=== PATIENT | male | born 1960 | race American Indian/Alaskan Native ===

== ENCOUNTER 2019-02-19 20:55 | Emergency (ER) | payer SELFPAY ==
--- NOTE | 2019-02-19 21:07 | Event Note ---
ED Screening Note Date of service: 02/19/19 Time: 21:04 ED Screening Note: This is a 58 y.o. M. that presents to the ER with abdominal pain and vomiting x 1 week. PMH of GERD, HLD, & HTN Current smoker This initial assessment/diagnostic orders/clinical plan/treatment(s) is/are subject to change based on patients health status, clinical progression and re- assessment by fellow clinical providers in the ED. Further treatment and workup at subsequent clinical providers discretion. Patient/guardian urged not to elope from the ED as their condition may be serious if not clinically assessed and managed. Initial orders include: Labs and CT of abdomen
[2019-02-19 21:31] LABS: Basophils # (Auto) 0.2 K/mm3 (0.0-0.1); Basophils % (Auto) 1.3 % (0.0-1.8); Eosinophils % (Auto) 0.1 % (0.0-4.3); Hematocrit 45.1 % (35.5-45.6); Hemoglobin 15.4 gm/dl (11.8-15.2); Lymphocytes % (Auto) 16.9 % (13.4-35.0); Mean Corpuscular HGB Conc 34 % (32-34); Mean Corpuscular Volume 84 fl (84-94); Monocytes # (Auto) 0.8 K/mm3 (0.0-0.8); Platelet Count 267 K/mm3 (140-440); Red Blood Count 5.34 M/mm3 (3.65-5.03)
[2019-02-19] MEDS ORDERED: ZOFRAN IV ONE (21:39)
[2019-02-19] MEDS ORDERED: NACL 0.9% 1000 ML 1,000 ML IV ONE (21:39)
[2019-02-19] MEDS ORDERED: PEPCID IV ONE (21:39)
[2019-02-19] MEDS ORDERED: MORPHINE IV ONE (21:39)
[2019-02-19 21:55] LABS: Albumin 4.5 g/dL (3.9-5); Calcium 9.6 mg/dL (8.4-10.2)
[2019-02-19 22:55] LABS: Bilirubin,Urine NEG (Negative); Blood,Urine NEG (Negative); Color,Urine Yellow (Yellow); Hyaline Casts,Urine 2 /LPF; Mucus,Urine FEW /HPF; Protein,Urine <15 mg/dL mg/dL (Negative); Urobilinogen,Urine < 2.0 mg/dL (<2.0)
--- NOTE | 2019-02-19 23:36 | Cat Scan Report ---
CT of the abdomen and pelvis with contrast INDICATION: Right-sided abdominal pain COMPARISON: None FINDINGS: Lung bases are clear. The liver, spleen, pancreas all appear normal. There are several angelica l cysts and scarring of the right kidney without obstruction. 2 mm stone in the left lower pole which is nonobstructing. There is nodularity of the right adrenal g land probably benign. The left adrenal gland contains 2 nodules one measuring 2.2 cm and the second n odule measuring 1.3 cm. These are probably nonfunctioning adenomas. No definite gallbladder or biliar y tree abnormality. No fluid or adenopathy in the upper abdomen. CT of the pelvis shows a normal appendix and terminal ileum. There is no hernia or bowel obstruction. Prostate may be minimally enlarged. No pelvic fluid or adenopathy. No diverticulitis seen. No distal ureteral stones. No stone fragments seen in the latter. No significant skeletal lesion. IMPRESSION: Incidental findings as described but no ureteral stone or appendicitis seen. Automated exposure control was utilized to diminish radiation dose. Signer Name: Fernando Gould MD Signed: 02/19/2019 11:32 PM Workstation Name: [id number]
--- NOTE | 2019-02-20 00:48 | Emergency Department Report ---
ED Abdominal Pain HPI - General Chief Complaint: Abdominal Pain Stated Complaint: abd pain Time Seen by Provider: 02/19/19 21:04 Source: patient Mode of arrival: Ambulatory Limitations: No Limitations - History of Present Illness Initial Comments: Patient is a 58-year-old -[place] male with a history of hypertension who presents to the ED with a complaint of acute onset of persistent diffuse abdominal pain worse in the bilateral flanks with nausea and vomiting intermittently for the last 1 week. Patient denies fever, chills, diarrhea, constipation, dysuria, hematuria, urinary frequency and urgency, testicular pain, dizziness, chest pain, shortness of breath, hematochezia, hematemesis, headache or palpitations. MD Complaint: abdominal pain, other (nausea and vomiting) -: Sudden, week(s) (1) Location: diffuse, bilateral flank Radiation: none Migration to: no migration Severity: severe Severity scale (0 -10): 6 Quality: cramping, aching, sharp Consistency: constant Improves With: nothing Worsens With: nothing Associated Symptoms: denies other symptoms, nausea, vomiting. denies: diarrhea, fever, constipation, dysuria, hematochezia, melena, hematuria, syncope - Related Data Previous Rx's Medication Instructions Recorded Last Taken Type Acetaminophen/Codeine [Tylenol 1 tab PO Q6H PRN #12 tab 02/20/19 Unknown Rx /Codeine # 3 tab] Ciprofloxacin HCl [Ciprofloxacin 500 mg PO Q12HR #20 tab 02/20/19 Unknown Rx TAB] Ketorolac [Toradol] 10 mg PO Q6H PRN #20 tablet 02/20/19 Unknown Rx Ondansetron [Zofran Odt] 4 mg PO Q6HR PRN #15 tab.rapdis 02/20/19 Unknown Rx Tamsulosin [Flomax] 0.4 mg PO QDAY #7 cap 02/20/19 Unknown Rx Allergies Allergy/AdvReac Type Severity Reaction Status Date / Time No Known Allergies Allergy Verified 02/19/19 21:07 ED Review of Systems ROS: Stated complaint: abd pain Other details as noted in HPI Comment: All other systems reviewed and negative Constitutional: denies: chills, fever Eyes: denies: eye pain, eye discharge, vision change ENT: denies: ear pain, throat pain Respiratory: denies: cough, shortness of breath, wheezing Cardiovascular: denies: chest pain, palpitations Endocrine: no symptoms reported Gastrointestinal: abdominal pain, nausea, vomiting. denies: diarrhea Genitourinary: denies: urgency, dysuria Musculoskeletal: denies: back pain, joint swelling, arthralgia Skin: denies: rash, lesions Neurological: denies: headache, weakness, paresthesias Psychiatric: denies: anxiety, depression Hematological/Lymphatic: denies: easy bleeding, easy bruising ED Past Medical Hx - Past Medical History Previous Medical History?: Yes Hx Hypertension: Yes Hx GERD: Yes Additional medical history: high cholestrol - Surgical History Past Surgical History?: No - Social History Smoking Status: Current Every Day Smoker Substance Use Type: None - Medications Home Medications: Home Medications Medication Instructions Recorded Confirmed Last Taken Type Acetaminophen/Codeine [Tylenol 1 tab PO Q6H PRN #12 tab 02/20/19 Unknown Rx /Codeine # 3 tab] Ciprofloxacin HCl [Ciprofloxacin 500 mg PO Q12HR #20 tab 02/20/19 Unknown Rx TAB] Ketorolac [Toradol] 10 mg PO Q6H PRN #20 tablet 02/20/19 Unknown Rx Ondansetron [Zofran Odt] 4 mg PO Q6HR PRN #15 tab.rapdis 02/20/19 Unknown Rx Tamsulosin [Flomax] 0.4 mg PO QDAY #7 cap 02/20/19 Unknown Rx ED Physical Exam - General Limitations: No Limitations General appearance: alert, in no apparent distress - Head Head exam: Present: atraumatic, normocephalic, normal inspection - Eye Eye exam: Present: normal appearance, PERRL, EOMI - ENT ENT exam: Present: normal exam, normal orophraynx, mucous membranes moist, TM's normal bilaterally, normal external ear exam - Neck Neck exam: Present: normal inspection, full ROM - Respiratory Respiratory exam: Present: normal lung sounds bilaterally. Absent: respiratory distress, wheezes, rales, rhonchi, chest wall tenderness, accessory muscle use, prolonged expiratory - Cardiovascular Cardiovascular Exam: Present: regular rate, normal rhythm, normal heart sounds. Absent: systolic murmur, diastolic murmur, rubs, gallop - GI/Abdominal GI/Abdominal exam: Present: soft, tenderness (Palpable Bilateral flanks, suprapubic and periumbilical tenderness), normal bowel sounds. Absent: hyperactive bowel sounds, hypoactive bowel sounds, mass, bruit - Rectal Rectal exam: Present: deferred - Extremities Exam Extremities exam: Present: normal inspection, full ROM - Back Exam Back exam: Present: normal inspection, full ROM. Absent: tenderness, CVA tenderness (L), muscle spasm - Neurological Exam Neurological exam: Present: alert, oriented X3, CN II-XII intact, normal gait, reflexes normal - Psychiatric Psychiatric exam: Present: normal affect, normal mood - Skin Skin exam: Present: warm, dry, intact, normal color. Absent: rash ED Course Vital Signs 02/19/19 21:06 Temperature 98.3 F Pulse Rate 62 Respiratory 12 Rate Blood Pressure 180/100 O2 Sat by Pulse 97 Oximetry - Reevaluation(s) Reevaluation #1: 02/20/19 00:57 This is a 58-year-old male who presented to the ED with diffuse abdominal and bilateral flank pain with nausea and vomiting intermittently for one week. In the ED, patient is alert and oriented 3 and is not in distress. Labs are drawn and abdomen and pelvis CT scan with contrast was ordered. Patient was treated for pain and nausea and vomiting. On reevaluation, patient is resting comfortably sleeping and snoring in the room and in no acute distress. Lab test results were reviewed and are remarkable for acute leukocytosis of 12,100, elevated BUN 21, hyperglycemia 1 40 mg/dL and a mild urinary tract infection. Abdomen pelvis CT scan with contrast shows a 2 mm stone in the left lower pole which is nonobstructing. The appendix and a terminal ileum are unre markable.There is no hernia or bowel obstruction. Prostate may be minimally enlarged. No pelvic fluid or adenopathy. No diverticulitis seen. No distal ureteral stones. No stone fragments seen in the latter. No significant skeletal lesion. Patient was discharged home on medications and advised to follow-up with his primary care physician in 3-5 days for reevaluation. Patient was also advised to consider following up with a urologist for follow-up on his kidney stones. Patient was therefore referred to the urologist Dr. Altamirano for follow- up. 02/20/19 01:01 02/20/19 01:02 ED Medical Decision Making - Lab Data Result diagrams: 02/19/19 21:09 02/19/19 21:09 - Radiology Data Radiology results: report reviewed, image reviewed Findings [facility] [address] [place] [address] Cat Scan Report Signed Patient: LISA CHICAS MR#: [id number] : 1960 Acct:[id number] Age/Sex: 58 / M ADM Date: 02/19/19 Loc: ED Attending Dr: Ordering Physician: JINNY JOHNSON Date of Service: 02/19/19 Procedure(s): CT abdomen pelvis w con Accession Number(s): [id number] cc: JINNY JOHNSON CT of the abdomen and pelvis with contrast INDICATION: Right-sided abdominal pain COMPARISON: None FINDINGS: Lung bases are clear. The liver, spleen, pancreas all appear normal. There are several renal cysts and scarring of the right kidney without obstruction. 2 mm stone in the left lower pole which is nonobstructing. There is nodularity of the right adrenal gland probably benign. The left adrenal gland contains 2 nodules one measuring 2.2 cm and the second nodule measuring 1.3 cm. These are probably nonfunctioning adenomas. No definite gallbladder or biliary tree abnormality. No fluid or adenopathy in the upper abdomen. CT of the pelvis shows a normal appendix and terminal ileum. There is no hernia or bowel obstruction. Prostate may be minimally enlarged. No pelvic fluid or adenopathy. No diverticulitis seen. No distal ureteral stones. No stone fragments seen in the latter. No significant skeletal lesion. IMPRESSION: Incidental findings as described but no ureteral stone or appendicitis seen. Automated exposure control was utilized to diminish radiation dose. Signer Name: Fernando Gould MD Signed: 02/19/2019 11:32 PM Workstation Name: [id number] Transcribed By: CHARITY Dictated By: Fernando Gould MD Electronically Authenticated By: Fernando Gould MD Signed Date/Time: 02/19/19 7722 - Medical Decision Making This is a 58-year-old male who presented to the ED with diffuse abdominal and bilateral flank pain with nausea and vomiting intermittently for one week. In the ED, patient is alert and oriented 3 and is not in distress. Labs are drawn and abdomen and pelvis CT scan with contrast was ordered. Patient was treated for pain and nausea and vomiting. On reevaluation, patient is resting comfortably sleeping and snoring in the room and in no acute distress. Lab test results were reviewed and are remarkable for acute leukocytosis of 12,100, elevated BUN 21, hyperglycemia 1 40 mg/dL and a mild urinary tract infection. Abdomen pelvis CT scan with contrast shows a 2 mm stone in the left lower pole which is nonobstructing. The appendix and a terminal ileum are unremarkable.There is no hernia or bowel obstruction. Prostate may be minimally enlarged. No pelvic fluid or adenopathy. No diverticulitis seen. No distal ureteral stones. No stone fragments seen in the latter. No significant skeletal lesion. Patient was discharged home on medications and advised to follow-up with his primary care physician in 3-5 days for reevaluation. Patient was also advised to consider following up with a urologist for follow-up on his kidney stones. Patient was therefore referred to the urologist Dr. Altamirano for follow- up. - Differential Diagnosis Abdominal pain, kidney stones, nausea and vomiting, Acute UTI Critical care attestation.: If time is entered above; I have spent that time in minutes in the direct care of this critically ill patient, excluding procedure time. ED Disposition Clinical Impression: Kidney stone on left side, Nausea and vomiting in adult, Acute urinary tract infection Abdominal pain Qualifiers: Abdominal location: unspecified location Qualified Code(s): R10.9 - Unspecified abdominal pain Disposition: TO HOME OR SELFCARE Is pt being admited?: No Does the pt Need Aspirin: No Condition: Stable Instructions: Kidney Stones (ED), Acute Nausea and Vomiting (ED), Abdominal Pain (ED) Additional Instructions: Take pain medications with food, drink plenty of fluids and follow-up with your primary care physician in 5-7 days for reevaluation. Consider following up with a urologist for the kidney stones, specifically Dr. Altamirano, in 3-5 days for reevaluation. Prescriptions: Ciprofloxacin HCl [Ciprofloxacin TAB] 500 mg PO Q12HR #20 tab Tamsulosin [Flomax] 0.4 mg PO QDAY #7 cap Ketorolac [Toradol] 10 mg PO Q6H PRN #20 tablet PRN Reason: Pain Acetaminophen/Codeine [Tylenol /Codeine # 3 tab] 1 tab PO Q6H PRN #12 tab PRN Reason: Pain , Severe (7-10) Ondansetron [Zofran Odt] 4 mg PO Q6HR PRN #15 tab.rapdis PRN Reason: Nausea Referrals: APOLINAR ALTAMIRANO MD [Staff Physician] - 3-5 Days [place] KYLAH SANCHEZ MD [Primary Care Provider] - 3-5 Days Time of Disposition: 00:47 Print Language: BELARUSIAN
[2019-02-20 01:33] VITALS: BP 147/65
== END 2019-02-20 01:33 | disposition home or self-care (01) ==
LOC: ED 20:55
DX: N20.0 Calculus of kidney (principal); N39.0 Urinary tract infection, site not specified; I10 Essential (primary) hypertension; K21.9 Gastro-esophageal reflux disease without esophagitis; F17.200 Nicotine dependence, unspecified, uncomplicated; E78.00 Pure hypercholesterolemia, unspecified; Z79.899 Other long term (current) drug therapy
CPT/HCPCS: 36415; 74177; 80053; 81001; 83690; 85025; 96361; 96374; 96375; 99284; J2270; J2405; J7030; Q9967

== ENCOUNTER 2019-02-23 22:08 | Emergency (ER) | payer OTHER ==
[2019-02-23 23:55] LABS: Basophils # (Auto) 0.1 K/mm3 (0.0-0.1); Basophils % (Auto) 0.8 % (0.0-1.8); Eosinophils # (Auto) 0.1 K/mm3 (0.0-0.4); Eosinophils % (Auto) 0.8 % (0.0-4.3); Hematocrit 46.6 % (35.5-45.6); Hemoglobin 15.2 gm/dl (11.8-15.2); Lymphocytes # (Auto) 2.8 K/mm3 (1.2-5.4); Lymphocytes % (Auto) 25.3 % (13.4-35.0); Mean Corpuscular HGB Conc 33 % (32-34); Mean Corpuscular Volume 86 fl (84-94); Monocytes # (Auto) 0.9 K/mm3 (0.0-0.8); Monocytes % (Auto) 7.6 % (0.0-7.3); Platelet Count 253 K/mm3 (140-440); Red Blood Count 5.39 M/mm3 (3.65-5.03); Red Cell Distribution Width 15.1 % (13.2-15.2)
[2019-02-24 00:11] LABS: Bilirubin,Urine NEG (Negative); Blood,Urine NEG (Negative); Color,Urine Straw (Yellow); Protein,Urine <15 mg/dL mg/dL (Negative); Urobilinogen,Urine < 2.0 mg/dL (<2.0); WBC,Urine < 1.0 /HPF (0.0-6.0)
[2019-02-24 00:11] LABS: Alanine Aminotransferase 40 units/L (7-56); Albumin 4.4 g/dL (3.9-5); BUN/Creatinine Ratio 13; Blood Urea Nitrogen 17 mg/dL (9-20); Calcium 9.7 mg/dL (8.4-10.2); Hemolysis Index 18
[2019-02-24] MEDS ORDERED: NACL 0.9% 1000 ML 1,000 ML IV ONE (00:33)
[2019-02-24] MEDS ORDERED: ZOFRAN IV ONE (00:33)
[2019-02-24] MEDS ORDERED: BENTYL IM ONE (00:33)
[2019-02-24] MEDS ORDERED: PEPCID IV ONE (00:33)
[2019-02-24 00:41] VITALS: BP 166/87
--- NOTE | 2019-02-24 01:13 | Emergency Department Report ---
ED Abdominal Pain HPI - General Chief Complaint: Abdominal Pain Stated Complaint: ABD PAIN Time Seen by Provider: 02/24/19 00:25 Source: patient Mode of arrival: Ambulatory Limitations: No Limitations - History of Present Illness Initial Comments: Patient is a 58-year-old Bangl[place] male who has had nausea and vomiting for approximately 10 days. Patient was seen here in emergency department 4 days ago and was diagnosed with UTI. Patient has CT of abdomen and pelvis secondary to having some bilateral flank pain which was essentially just normal. Patient had a small stone in his left kidney which is nonobstructive. Patient was discharged home with Tylenol with Codeine Zofran ODT and Cipro. Patient states that the Zofran is no longer helping with his nausea and he believes that the Tylenol with codeine may make him more nauseous. Patient states he has diffuse crampiness in his abdomen. He states he is very nauseous and vomited several times. Patient denies any fevers chills diarrhea and cough cold or congestion at this time. Severity scale (0 -10): 7 Improves With: nothing Worsens With: nothing - Related Data Previous Rx's Medication Instructions Recorded Last Taken Type Acetaminophen/Codeine [Tylenol 1 tab PO Q6H PRN #12 tab 02/20/19 Unknown Rx /Codeine # 3 tab] Ciprofloxacin HCl [Ciprofloxacin 500 mg PO Q12HR #20 tab 02/20/19 Unknown Rx TAB] Ketorolac [Toradol] 10 mg PO Q6H PRN #20 tablet 02/20/19 Unknown Rx Ondansetron [Zofran Odt] 4 mg PO Q6HR PRN #15 tab.rapdis 02/20/19 Unknown Rx Tamsulosin [Flomax] 0.4 mg PO QDAY #7 cap 02/20/19 Unknown Rx Dicyclomine [Bentyl] 20 mg PO QID #10 tablet 02/24/19 Unknown Rx Metoclopramide [Reglan] 10 mg PO TID PRN #12 tab 02/24/19 Unknown Rx traMADol [Ultram] 50 mg PO Q6HR PRN #12 tablet 02/24/19 Unknown Rx Allergies Allergy/AdvReac Type Severity Reaction Status Date / Time No Known Allergies Allergy Verified 02/19/19 21:07 ED Review of Systems ROS: Stated complaint: ABD PAIN Other details as noted in HPI Comment: All other systems reviewed and negative ED Past Medical Hx - Past Medical History Previous Medical History?: Yes Hx Hypertension: Yes Hx GERD: Yes Additional medical history: high cholestrol - Surgical History Past Surgical History?: No - Social History Smoking Status: Current Every Day Smoker Substance Use Type: None - Medications Home Medications: Home Medications Medication Instructions Recorded Confirmed Last Taken Type Acetaminophen/Codeine [Tylenol 1 tab PO Q6H PRN #12 tab 02/20/19 Unknown Rx /Codeine # 3 tab] Ciprofloxacin HCl [Ciprofloxacin 500 mg PO Q12HR #20 tab 02/20/19 Unknown Rx TAB] Ketorolac [Toradol] 10 mg PO Q6H PRN #20 tablet 02/20/19 Unknown Rx Ondansetron [Zofran Odt] 4 mg PO Q6HR PRN #15 tab.rapdis 02/20/19 Unknown Rx Tamsulosin [Flomax] 0.4 mg PO QDAY #7 cap 02/20/19 Unknown Rx Dicyclomine [Bentyl] 20 mg PO QID #10 tablet 02/24/19 Unknown Rx Metoclopramide [Reglan] 10 mg PO TID PRN #12 tab 02/24/19 Unknown Rx traMADol [Ultram] 50 mg PO Q6HR PRN #12 tablet 02/24/19 Unknown Rx ED Physical Exam - General Limitations: No Limitations General appearance: alert, in no apparent distress - Head Head exam: Present: atraumatic, normocephalic - Eye Eye exam: Present: normal appearance, PERRL, EOMI - ENT ENT exam: Present: mucous membranes moist - Neck Neck exam: Present: normal inspection - Respiratory Respiratory exam: Present: normal lung sounds bilaterally. Absent: respiratory distress, wheezes, rales, rhonchi, chest wall tenderness - Cardiovascular Cardiovascular Exam: Present: regular rate, normal rhythm, normal heart sounds. Absent: systolic murmur, diastolic murmur, rubs, gallop - GI/Abdominal GI/Abdominal exam: Present: soft, normal bowel sounds, hyperactive bowel sounds. Absent: distended, tenderness, guarding, rebound, rigid - Rectal Rectal exam: Present: deferred - Extremities Exam Extremities exam: Present: normal inspection - Back Exam Back exam: Present: normal inspection - Neurological Exam Neurological exam: Present: alert, oriented X3 - Psychiatric Psychiatric exam: Present: normal affect, normal mood - Skin Skin exam: Present: warm, dry, intact, normal color. Absent: rash ED Course Vital Signs 02/23/19 02/24/19 23:08 00:39 Temperature 98.9 F 98.3 F Pulse Rate 57 L 63 Respiratory 20 17 Rate Blood Pressure 160/98 Blood Pressure 166/87 [Left] O2 Sat by Pulse 99 99 Oximetry ED Medical Decision Making - Lab Data Result diagrams: 02/23/19 23:24 02/23/19 23:24 Lab Results 02/23/19 02/23/19 02/23/19 Range/Units 23:24 23:24 23:31 WBC 11.2 H (4.5-11.0) K/mm3 RBC 5.39 H (3.65-5.03) M/mm3 Hgb 15.2 (11.8-15.2) gm/dl Hct 46.6 H (35.5-45.6) % MCV 86 (84-94) fl MCH 28 (28-32) pg MCHC 33 (32-34) % RDW 15.1 (13.2-15.2) % Plt Count 253 (140-440) K/mm3 Lymph % (Auto) 25.3 (13.4-35.0) % [place] % (Auto) 7.6 H (0.0-7.3) % Eos % (Auto) 0.8 (0.0-4.3) % Baso % (Auto) 0.8 (0.0-1.8) % Lymph # 2.8 (1.2-5.4) K/mm3 [place] # 0.9 H (0.0-0.8) K/mm3 Eos # 0.1 (0.0-0.4) K/mm3 Baso # 0.1 (0.0-0.1) K/mm3 Seg Neutrophils % 65.5 (40.0-70.0) % Seg Neutrophils # 7.3 (1.8-7.7) K/mm3 Sodium 139 (137-145) mmol/L Potassium 4.2 (3.6-5.0) mmol/L Chloride 97.0 L (98-107) mmol/L Carbon Dioxide 29 (22-30) mmol/L Anion Gap 17 mmol/L BUN 17 (9-20) mg/dL Creatinine 1.3 (0.8-1.5) mg/dL Estimated GFR > 60 ml/min BUN/Creatinine Ratio 13 % Glucose 124 H (75-100) mg/dL Calcium 9.7 (8.4-10.2) mg/dL Total Bilirubin 0.70 (0.1-1.2) mg/dL AST 25 (5-40) units/L ALT 40 (7-56) units/L Alkaline Phosphatase 122 (35-129) units/L Total Protein 7.3 (6.3-8.2) g/dL Albumin 4.4 (3.9-5) g/dL Albumin/Globulin Ratio 1.5 % Lipase 70 H (13-60) units/L Urine Color Straw (Yellow) Urine Turbidity Clear (Clear) Urine pH 6.0 (5.0-7.0) Ur Specific [place] 1.005 (1.003-1.030) Urine Protein <15 mg/dl (Negative) mg/dL Urine Glucose (UA) Neg (Negative) mg/dL Urine Ketones Neg (Negative) mg/dL Urine Blood Neg (Negative) Urine Nitrite Neg (Negative) Urine Bilirubin Neg (Negative) Urine Urobilinogen < 2.0 (<2.0) mg/dL Ur Leukocyte Esterase Neg (Negative) Urine WBC (Auto) < 1.0 (0.0-6.0) /HPF Urine RBC (Auto) 2.0 (0.0-6.0) /HPF She is urine 4 days ago did have positive leuk esterase and WBCs which is improv ed - Medical Decision Making She was hydrated and given nausea medicines. Patient's urinalysis does look improved but does support the patient should continue with the Cipro. Patient will have his other medications changed. Patient started on Bentyl, ultram and Reglan. Critical care attestation.: If time is entered above; I have spent that time in minutes in the direct care of this critically ill patient, excluding procedure time. ED Disposition Clinical Impression: Nausea and vomiting in adult Abdominal pain Qualifiers: Abdominal location: generalized Qualified Code(s): R10.84 - Generalized abdominal pain Drug reaction Qualifiers: Encounter type: initial encounter Qualified Code(s): T50.905A - Adverse effect of unspecified drugs, medicaments and biological substances, initial encounter Disposition: - TO HOME OR SELFCARE Is pt being admited?: No Does the pt Need Aspirin: No Condition: Stable Instructions: Acute Nausea and Vomiting (ED) Referrals: KYLAH HERRING MD [Primary Care Provider] - 3-5 Days Time of Disposition: 01:13
== END 2019-02-24 01:55 | disposition home or self-care (01) ==
LOC: ED 22:08
DX: R11.2 Nausea with vomiting, unspecified (principal); R10.9 Unspecified abdominal pain; T40.2X5A Adverse effect of other opioids, initial encounter; I10 Essential (primary) hypertension; K21.0 Gastro-esophageal reflux disease with esophagitis; E78.00 Pure hypercholesterolemia, unspecified; F17.200 Nicotine dependence, unspecified, uncomplicated; Z79.899 Other long term (current) drug therapy; Y92.89 Other specified places as the place of occurrence of the external cause
CPT/HCPCS: 36415; 80053; 81001; 83690; 85025; 96361; 96372; 96374; 96375; 99283; J0500; J2405; J7030